=== PATIENT | male | born 2000 | race Two or more races ===

== ENCOUNTER 2021-05-08 22:57 | Emergency (ER) | payer OTHER ==
[~2021-05-08] VITALS: Ht 180.3 cm; Wt 65.8 kg
[2021-05-09] MEDS ORDERED: MECLIZINE HCL25 MG PO (03:21)
== END 2021-05-09 03:40 ==
LOC: ER 22:57 → EMR PED 23:19 → ER 05-09 03:40
DX: R42 Dizziness and giddiness (principal)

== ENCOUNTER 2021-08-17 14:40 | Emergency (ER) | payer OTHER ==
[~2021-08-17] VITALS: Ht 177.8 cm; Wt 68.0 kg
[~2021-08-17 14:40] MED LIST: MECLIZINE HCL25 MG PO
== END 2021-08-17 22:19 | disposition home or self-care (01) ==
LOC: ER 14:40 → EMR PED 14:43
DX: K52.9 Noninfective gastroenteritis and colitis, unspecified (principal); E86.0 Dehydration

== ENCOUNTER 2022-05-02 00:33 | Emergency (ER) | payer OTHER ==
[~2022-05-02] VITALS: Ht 180.3 cm; Wt 68.9 kg
== END 2022-05-02 03:18 | disposition home or self-care (01) ==
LOC: ER 00:33
DX: R05.9 Cough, unspecified (principal); F41.9 Anxiety disorder, unspecified; Z20.822 Contact with and (suspected) exposure to COVID-19